=== PATIENT | male | born 1960 | race Caucasian/White ===

== ENCOUNTER → 2022-07-22 | Outpatient (CLI) | LOC: M SOG 08:18 | PROVIDERS: ATTEND Orthopaedic Surgery Adult Reconstructive Orthopaedic Surgery | DX: M25.561 Pain in right knee (principal); M25.562 Pain in left knee; M25.761 Osteophyte, right knee; M25.762 Osteophyte, left knee ==

== ENCOUNTER → 2023-05-11 | Outpatient (CLI) | payer BC | LOC: M SOG 08:18 | PROVIDERS: ATTEND Orthopaedic Surgery | DX: Z53.9 Procedure and treatment not carried out, unspecified reason (principal); M25.562 Pain in left knee; M25.561 Pain in right knee ==

== ENCOUNTER 2024-12-26 12:08 | Emergency (ER) | payer OTHER ==
[~2024-12-26] VITALS: Ht 188 cm; Wt 160.9 kg
[2024-12-26 12:10] VITALS: TEMP 97.2
[2024-12-26] MEDS: LIDOCAINE 1% MDV 20ML VIAL SC ONE (16:40)
[2024-12-26] MEDS: KETOROLAC 60MG 2ML VIAL IM ONE (17:45)
[2024-12-26] MEDS: BOOSTRIX VACCINE (TETANUS/DIPHTH/ACEL. PERTUSSIS) 0.5ML SYR IM.IMMUN ONE (17:46)
[2024-12-26 17:59] VITALS: BP 165/78; O2SAT 96
== END 2024-12-26 18:02 | disposition home or self-care (01) ==
LOC: M ED 12:08
DX: S61.214A Laceration without foreign body of right ring finger without damage to nail, initial encounter (principal); M25.562 Pain in left knee; W01.198A Fall on same level from slipping, tripping and stumbling with subsequent striking against other object, initial encounter; Y92.511 Restaurant or cafe as the place of occurrence of the external cause; Y93.89 Activity, other specified; Y99.9 Unspecified external cause status; J43.9 Emphysema, unspecified; Z23 Encounter for immunization
CPT/HCPCS: 12002; 73140; 73564; 90471; 90715; 96372; 99283; J1885